=== PATIENT | female | born 1980 | race African-American/Black ===

== ENCOUNTER 2018-01-29 13:42 | Emergency (ER) | payer SELFPAY ==
[2018-01-29 14:11] LABS: #Basophils 0.1 thou/uL (0.0-0.2); #Eosinphils 0.2 thou/uL (0.0-0.7); #Lymphocytes 2.3 thou/uL (1.20-3.40); #Monocytes 0.5 thou/uL (0.11-0.59); #Neutrophils 4.7 thou/uL (1.40-6.50); %Basophils 0.9 % (0.0-1.0); %Eosinophils 2.9 % (0.0-10.0); %Lymphocytes 29.7 % (21.0-51.0); %Monocytes 6.1 % (0.0-10.0); %Neutrophils 60.3 % (42.0-75.0); Hemoglobin 12.5 g/dL (12.0-16.0); Mean Corpuscular HGB CONC 32.2 g/dL (32.0-36.0); Mean Corpuscular Hemoglobin 25.8 pg (27.0-31.0); Mean Platelet Volume 9.3 fL (7.4-10.4); Platelet Count 260 thou/uL (130-400); RBC Distribution Width 17.3 % (11.5-14.5); Red Blood Cell (RBC) Count 4.84 mill/uL (4.20-5.40); White Blood Cell (WBC) Count 7.8 thou/uL (4.8-10.8)
[2018-01-29 14:36] LABS: ALT (SGPT) 17 U/L (8-55); AST (SGOT) 19 U/L (5-34); Albumin 4.4 g/dL (3.5-5.0); Alkaline Phosphatase 101 U/L (40-150); Anion Gap 14 mmol/L (10-20); BUN (Urea Nitrogen) 14 mg/dL (7.0-18.7); Bilirubin, Total 0.6 mg/dL (0.2-1.2); Calc. Creatinine Clearance 0 mL/min (70-130); Calcium 9.4 mg/dL (7.8-10.44); Carbon Dioxide 26 mmol/L (22-29); Chloride 104 mmol/L (98-107); Estimated GFR-MDRD 67; Globulin 4.1 g/dL (2.4-3.5); Glucose 93 mg/dL (70-105); Protein, Total 8.5 g/dL (6.0-8.3); Sodium 140 mmol/L (136-145)
[2018-01-29 15:06] LABS: CKMB 1.8 ng/mL (0-6.6); Troponin I 0.024 ng/mL (< 0.028)
[2018-01-29 15:45] LABS: Bilirubin Small (Negative); Blood, Urine Negative (Negative); Clarity CLEAR (Clear); Glucose, Urine (Dipstick) Negative (Negative); Leukocyte Trace (Negative); Nitrite Negative (Negative); Protein, Urine (Dipstick) Trace mg/dL (Neg-Trace); Specific Gravity, Urine 1.027 (1.002-1.036)
[2018-01-29 15:46] LABS: Bacteria/HPF None Seen HPF (None Seen); Hyaline Casts/LPF 7-10 HYALINE CAST LPF (0-3 Hyaline); Pathc Cast-AUWi Flag 2.03 (0-2.49); Squamous Epithelial 0-3 HPF (0-3); WBC/HPF 0-3 HPF (0-3)
[2018-01-29 16:00] LABS: Pregnancy Test - Urine (BHCG) Negative (Negative); Pregu Control Background? CLEAR/WHITE (CLR/WHITE); Pregu Control Bar Appear? YES (CONTROL BAR); Specific Gravity 1.027 (1.002-1.036)
== END 2018-01-29 16:19 | disposition home or self-care (01) ==
LOC: ERS 13:42
DX: R53.1 Weakness (principal); R42 Dizziness and giddiness; E03.9 Hypothyroidism, unspecified; D50.9 Iron deficiency anemia, unspecified; F17.210 Nicotine dependence, cigarettes, uncomplicated; Z79.899 Other long term (current) drug therapy
CPT/HCPCS: 36415; 80053; 81003; 81015; 81025; 82553; 83880; 84484; 85025; 93005

== ENCOUNTER 2021-07-18 09:55 | Inpatient (IN) | payer OTHER, SELFPAY ==
[2021-07-18] MEDS ORDERED: methylPREDNISolone Sod Succ/PF 125 MG/2 ML VIAL ONE (10:30)
[2021-07-18 10:51] LABS: #Basophils 0.2 thou/uL (0.0-0.2); #Eosinphils 0.2 thou/uL (0.0-0.7); #Lymphocytes 4.2 thou/uL (1.20-3.40); #Neutrophils 9.5 thou/uL (1.40-6.50); %Basophils 1.2 % (0.0-1.0); %Eosinophils 1.1 % (0.0-10.0); %Lymphocytes 27.9 % (21.0-51.0); %Monocytes 6.8 % (0.0-10.0); Hemoglobin 12.4 g/dL (12.0-16.0); Mean Corpuscular HGB CONC 30.2 g/dL (32.0-36.0); Mean Corpuscular Hemoglobin 28.6 pg (27.0-31.0); Mean Corpuscular Volume 94.9 fL (78.0-98.0); Mean Platelet Volume 10.2 fL (7.4-10.4); Platelet Count 268 thou/uL (130-400); RBC Distribution Width 18.2 % (11.5-14.5); Red Blood Cell (RBC) Count 4.34 mill/uL (4.20-5.40); White Blood Cell (WBC) Count 15.1 thou/uL (4.8-10.8)
[2021-07-18] MEDS ORDERED: Piperacillin/Tazobactam 3.375 GM VIAL ONE (11:07)
[2021-07-18 11:20] LABS: ALT (SGPT) 39 U/L (8-55); AST (SGOT) 20 U/L (5-34); Albumin 3.9 g/dL (3.5-5.0); Alkaline Phosphatase 119 U/L (40-110); Anion Gap 11 mmol/L (10-20); BUN (Urea Nitrogen) 13 mg/dL (7.0-18.7); Bilirubin, Total 0.3 mg/dL (0.2-1.2); Calc. Creatinine Clearance 0 mL/min (70-130); Calcium 9.6 mg/dL (7.8-10.44); Carbon Dioxide 33 mmol/L (22-29); Chloride 105 mmol/L (98-107); Globulin 4.1 g/dL (2.4-3.5); Glucose 93 mg/dL (70-105); Potassium 3.7 mmol/L (3.5-5.1); Sodium 145 mmol/L (136-145)
[2021-07-18] MEDS ORDERED: Ondansetron ODT 4 MG TAB PO PRN (13:54)
[2021-07-18] MEDS ORDERED: Acetaminophen 325 MG TAB PO PRN (13:54)
[2021-07-18] MEDS ORDERED: Escitalopram Oxalate 20 mg Tablet PO SCH (14:15)
[2021-07-18] MEDS ORDERED: hydrALAZINE 20 MG/ML VIAL SLOW IVP SCH (14:45)
[2021-07-18] MEDS ORDERED: hydrALAZINE 20 MG/ML VIAL ONE (15:02)
[2021-07-18] MEDS ORDERED: Lorazepam 2 MG/ML VIAL ONE ×2 (15:19→21:25)
[2021-07-18 15:33] LABS: SARS-CoV-2 NAA Rapid Test Not Detected (NotDetected)
[2021-07-18 15:46] LABS: Actual Bicarbonate (HCO3a) 29.4 mEq/L (22-28); Analyzer IN Cardio ER; Base Excess (BEa) 2.8 mEq/L (-2.0 to +3.0); CO2 Tension 53.8 mmHg (35.0-45.0); Calcium, Ionized (arterial) 1.18 mmol/L (1.12-1.30); Carboxyhemoglobin (COHb) 0.3 gm% (0.0-3.0); Hemoglobin (Hb) 13.2 g/dL (12.0-16.0); O2 Tension (PaO2), arterial 145.8 mmHg (80.0-100.0); Potassium - ABG Lab 4.16 mmol/L (3.70-5.30); pH, Arterial 7.36 (7.35-7.45)
[2021-07-18 15:47] LABS: Puncture Site RRA
[2021-07-18] MEDS ORDERED: Electrolyte Replacement Protocol 1 EACH IVPB SCH (18:32)
[2021-07-18] MEDS ORDERED: Lidocaine 2% Jelly 5 ML TUBE ONE (19:07)
[2021-07-18] MEDS ORDERED: Bupivacaine PF 0.5% 30 ML VIAL ONE (19:15)
[2021-07-18] MEDS ORDERED: EPINEPHrine 1 MG/ML AMP ONE (19:15)
[2021-07-18] MEDS ORDERED: Succinylcholine 200 MG/10 ml SYRINGE FS ONE (20:05)
[2021-07-18] MEDS ORDERED: Phenylephrine 10 MG/ML VIAL ONE (20:05)
[2021-07-18] MEDS ORDERED: PROPOFOL 200 MG/20 ML VIAL ONE (20:05)
[2021-07-18] MEDS ORDERED: Dexamethasone 20 MG/5 ML VIAL ONE (20:05)
[2021-07-18] MEDS ORDERED: Rocuronium Bromide 10 MG/ML (10ML VIAL) ONE (20:05)
[2021-07-18] MEDS ORDERED: PROPOFOL 20 ML ONE (20:19)
[2021-07-18] MEDS ORDERED: Propofol 1,000 MG/100 ML VIAL IV ONE ×2 (20:19→20:51)
[2021-07-18] MEDS ORDERED: Midazolam HCl 5 mg/5 ml Vial ONE (20:20)
[2021-07-18 21:18] LABS: Actual Bicarbonate (HCO3a) 33.6 mEq/L (22-28); Base Excess (BEa) 3.6 mEq/L (-2.0 to +3.0); Carboxyhemoglobin (COHb) 0.2 gm% (0.0-3.0); Hemoglobin (Hb) 12.7 g/dL (12.0-16.0); O2 Tension (PaO2), arterial 168.2 mmHg (80.0-100.0); Potassium - ABG Lab 4.87 mmol/L (3.70-5.30)
[2021-07-18 21:21] LABS: CO2 Tension 82.5 mmHg (35.0-45.0); pH, Arterial 7.23 (7.35-7.45)
[2021-07-18 21:22] LABS: ALV-art Gradient 441.675 mmHg (0-20); Puncture Site RRA
[2021-07-18] MEDS ORDERED: Propofol BOLUS 1,000 MG/100 ML VIAL IV PRN (21:30)
[2021-07-18] MEDS ORDERED: Ventilator Sedation Protocol 1 EACH FS SCH (21:30)
[2021-07-18] MEDS ORDERED: Morphine 2 MG/ML VIAL SLOW IVP PRN (21:30)
[2021-07-18] MEDS ORDERED: DISCONTINUE PREVIOUS NARCOTIC PAIN MEDICATIONS AND BENZODIAZEPINES FS SCH (21:30)
[2021-07-18] MEDS ORDERED: Fentanyl BOLUS 250 ML IVPB PRN (21:30)
[2021-07-18] MEDS: Fentanyl CADD 100 ML IV SCH (21:45)
[2021-07-18] MEDS: Lorazepam 2 MG/ML VIAL SLOW IVP PRN (21:45)
[2021-07-18 23:15] LABS: Actual Bicarbonate (HCO3a) 29.2 mEq/L (22-28); Base Excess (BEa) 1.3 mEq/L (-2.0 to +3.0); Calcium, Ionized (arterial) 1.16 mmol/L (1.12-1.30); Carboxyhemoglobin (COHb) 0.3 gm% (0.0-3.0); Hemoglobin (Hb) 11.5 g/dL (12.0-16.0); O2 Tension (PaO2), arterial 106.2 mmHg (80.0-100.0); pH, Arterial 7.28 (7.35-7.45)
[2021-07-18 23:25] LABS: ALV-art Gradient 528.175 mmHg (0-20); CO2 Tension 62.9 mmHg (35.0-45.0); Puncture Site RRA
[2021-07-19] MEDS: Famotidine 20 MG TAB PO SCH ×2 (01:42→08:41)
[2021-07-19] MEDS: Propofol 1,000 MG/100 ML VIAL IV PRN ×3 (02:45→18:30)
[2021-07-19] MEDS: Lorazepam 2 MG/ML VIAL SLOW IVP PRN ×8 (02:46→23:24)
[2021-07-19] MEDS: Sodium Chloride 0.9% 1,000 ML IV SCH ×2 (02:48→06:48)
[2021-07-19 04:05] LABS: #Eosinphils 0.1 thou/uL (0.0-0.7); #Lymphocytes 0.7 thou/uL (1.20-3.40); #Monocytes 0.1 thou/uL (0.11-0.59); #Neutrophils 11.1 thou/uL (1.40-6.50); %Eosinophils 0.4 % (0.0-10.0); %Lymphocytes 6.1 % (21.0-51.0); %Monocytes 1.2 % (0.0-10.0); %Neutrophils 92.3 % (42.0-75.0); Hemoglobin 10.3 g/dL (12.0-16.0); Mean Corpuscular HGB CONC 29.6 g/dL (32.0-36.0); Mean Corpuscular Hemoglobin 28.7 pg (27.0-31.0); Mean Corpuscular Volume 96.8 fL (78.0-98.0); Platelet Count 229 thou/uL (130-400); RBC Distribution Width 18.1 % (11.5-14.5); Red Blood Cell (RBC) Count 3.58 mill/uL (4.20-5.40); White Blood Cell (WBC) Count 12.1 thou/uL (4.8-10.8)
[2021-07-19 04:20] LABS: ALT (SGPT) 56 U/L (8-55); AST (SGOT) 46 U/L (5-34); Alkaline Phosphatase 85 U/L (40-110); Anion Gap 11 mmol/L (10-20); BUN (Urea Nitrogen) 18 mg/dL (7.0-18.7); Bilirubin, Total 0.3 mg/dL (0.2-1.2); Calc. Creatinine Clearance 0 mL/min (70-130); Calcium 8.3 mg/dL (7.8-10.44); Carbon Dioxide 30 mmol/L (22-29); Chloride 107 mmol/L (98-107); Globulin 3.3 g/dL (2.4-3.5); Glucose 142 mg/dL (70-105); Potassium 5.5 mmol/L (3.5-5.1); Protein, Total 6.3 g/dL (6.0-8.3); Sodium 142 mmol/L (136-145)
[2021-07-19] MEDS: Fentanyl CADD 100 ML IV SCH ×2 (05:19→15:17)
[2021-07-19] MEDS: Lactated Ringer's 1,000 ML IV SCH ×4 (08:02→20:57)
[2021-07-19] MEDS: Enoxaparin Sodium 40 MG/0.4 ML SYRINGE SC SCH (08:40)
[2021-07-19 08:58] VITALS: BMI 37.1
[2021-07-19 09:38] LABS: Actual Bicarbonate (HCO3a) 22.6 mEq/L (22-28); Analyzer IN Cardio ER; Base Excess (BEa) -0.6 mEq/L (-2.0 to +3.0); CO2 Tension 32.4 mmHg (35.0-45.0); Calcium, Ionized (arterial) 1.14 mmol/L (1.12-1.30); Carboxyhemoglobin (COHb) 0.3 gm% (0.0-3.0); Hemoglobin (Hb) 11.1 g/dL (12.0-16.0); Potassium - ABG Lab 4.68 mmol/L (3.70-5.30); pH, Arterial 7.46 (7.35-7.45)
[2021-07-19 09:39] LABS: O2 Tension (PaO2), arterial 57.8 mmHg (80.0-100.0)
[2021-07-19 09:40] LABS: Puncture Site RRA
[2021-07-19] MEDS ORDERED: Famotidine 20 MG TAB PER TUBE SCH (11:27)
[2021-07-19 15:36] VITALS: BP 119/78
[2021-07-19] MEDS ORDERED: FLU VACC QS2021-22(6MOS UP)/PF 60 MCG/0.5 ML SYRINGE IM ONE (18:00)
[2021-07-19] MEDS: Famotidine/PF 20 mg/2ml Vial SLOW IVP SCH (20:57)
[2021-07-19] MEDS: Cefepime 2 GM in Sodium Chloride 0.9% 100 ML IVPB SCH (22:33)
[2021-07-20] MEDS: Fentanyl CADD 100 ML IV SCH ×2 (01:04→11:02)
[2021-07-20 04:15] LABS: #Lymphocytes 2.8 thou/uL (1.20-3.40); #Neutrophils 8.2 thou/uL (1.40-6.50); %Basophils 0.3 % (0.0-1.0); %Eosinophils 0.3 % (0.0-10.0); %Monocytes 8.5 % (0.0-10.0); %Neutrophils 67.9 % (42.0-75.0); Hemoglobin 9.8 g/dL (12.0-16.0); Mean Corpuscular HGB CONC 31.4 g/dL (32.0-36.0); Mean Corpuscular Hemoglobin 29.1 pg (27.0-31.0); Mean Corpuscular Volume 92.8 fL (78.0-98.0); Mean Platelet Volume 10.5 fL (7.4-10.4); Platelet Count 193 thou/uL (130-400); RBC Distribution Width 18.1 % (11.5-14.5); Red Blood Cell (RBC) Count 3.37 mill/uL (4.20-5.40); White Blood Cell (WBC) Count 12.1 thou/uL (4.8-10.8)
[2021-07-20] MEDS: Propofol 1,000 MG/100 ML VIAL IV PRN ×3 (04:32→15:54)
[2021-07-20] MEDS: Lactated Ringer's 1,000 ML IV SCH ×2 (04:39→10:29)
[2021-07-20 05:02] LABS: ALT (SGPT) 42 U/L (8-55); AST (SGOT) 21 U/L (5-34); Alkaline Phosphatase 73 U/L (40-110); Anion Gap 11 mmol/L (10-20); BUN (Urea Nitrogen) 30 mg/dL (7.0-18.7); Bilirubin, Total 0.3 mg/dL (0.2-1.2); Calc. Creatinine Clearance 113 mL/min (70-130); Calcium 8.9 mg/dL (7.8-10.44); Carbon Dioxide 26 mmol/L (22-29); Chloride 104 mmol/L (98-107); Glucose 99 mg/dL (70-105); Potassium 3.7 mmol/L (3.5-5.1); Sodium 137 mmol/L (136-145)
[2021-07-20] MEDS: Lorazepam 2 MG/ML VIAL SLOW IVP PRN ×5 (05:12→15:54)
[2021-07-20 08:35] VITALS: TEMP 98.5
[2021-07-20] MEDS: Enoxaparin Sodium 40 MG/0.4 ML SYRINGE SC SCH (08:37)
[2021-07-20] MEDS: Famotidine/PF 20 mg/2ml Vial SLOW IVP SCH (08:37)
[2021-07-20] MEDS: Cefepime 2 GM in Sodium Chloride 0.9% 100 ML IVPB SCH (08:42)
[2021-07-20] MEDS ORDERED: EPINEPHrine 1 MG/10 ML Abboject SYRINGE ONE (13:57)
[2021-07-20] MEDS ORDERED: Sodium Bicarb 50 MEQ/50 ML Abboject 8.4% SYRINGE ONE (14:00)
== END 2021-07-20 16:25 | disposition short-term general hospital (02) | DRG 208 ==
LOC: ERS 09:55 → ERHOLD 13:34 → CCU 13:45
PROVIDERS: ADMIT Family Medicine; ATTEND Family Medicine
PROC: 5A1945Z Respiratory Ventilation, 24-96 Consecutive Hours (ICD-10-PCS; principal; 2021-07-18)
PROC: 0D9670Z Drainage of Stomach with Drainage Device, Via Natural or Artificial Opening (ICD-10-PCS; 2021-07-18)
PROC: 0BH18EZ Insertion of Endotracheal Airway into Trachea, Via Natural or Artificial Opening Endoscopic (ICD-10-PCS; 2021-07-18)
PROC: 0BJ08ZZ Inspection of Tracheobronchial Tree, Via Natural or Artificial Opening Endoscopic (ICD-10-PCS; 2021-07-18)
PROC: 5A1935Z Respiratory Ventilation, Less than 24 Consecutive Hours (ICD-10-PCS; 2021-07-18)
DX: J95.03 Malfunction of tracheostomy stoma (principal); J96.01 Acute respiratory failure with hypoxia; T17.490A Other foreign object in trachea causing asphyxiation, initial encounter; Z20.822 Contact with and (suspected) exposure to COVID-19; E03.9 Hypothyroidism, unspecified; D50.9 Iron deficiency anemia, unspecified; F17.210 Nicotine dependence, cigarettes, uncomplicated; I10 Essential (primary) hypertension; F41.9 Anxiety disorder, unspecified; U09.9 Post COVID-19 condition, unspecified; F41.1 Generalized anxiety disorder; J45.909 Unspecified asthma, uncomplicated; F43.10 Post-traumatic stress disorder, unspecified; T17.990A Other foreign object in respiratory tract, part unspecified in causing asphyxiation, initial encounter; Z90.49 Acquired absence of other specified parts of digestive tract; Z79.890 Hormone replacement therapy; Z79.899 Other long term (current) drug therapy; Z78.1 Physical restraint status
CPT/HCPCS: 36415; 36600; 71045; 71046; 80053; 82805; 84145; 84484; 85025; 93005; 94002; 94003; 94660; 94760; J0171; J0360; J0692; J1100; J1650; J2060; J2250; J2370; J2543; J2704; J2930; J3010; J3490; J7050; J7120; J7620; S0020; S0028; U0002

== ENCOUNTER 2021-10-09 17:30 | Outpatient (CLI) | payer OTHER | END 2021-10-09 17:31 | disposition home or self-care (01) | LOC: SLEEPLAB 17:30 | PROVIDERS: ATTEND Internal Medicine Pulmonary Disease | DX: G47.33 Obstructive sleep apnea (adult) (pediatric) (principal); R53.83 Other fatigue; G47.00 Insomnia, unspecified | CPT/HCPCS: 95806 ==

== ENCOUNTER 2021-10-12 08:03 | Emergency (ER) | payer OTHER ==
[2021-10-12] MEDS ORDERED: Dexamethasone 10 MG/ML VIAL ONE (08:27)
[2021-10-12] MEDS ORDERED: Racepinephrine 2.25% 0.5 ML NEB ONE (08:43)
[2021-10-12 08:52] LABS: #Basophils 0.1 thou/uL (0.0-0.2); #Eosinphils 0.4 thou/uL (0.0-0.7); #Lymphocytes 3.1 thou/uL (1.20-3.40); #Monocytes 0.5 thou/uL (0.11-0.59); #Neutrophils 4.9 thou/uL (1.40-6.50); %Eosinophils 4.7 % (0.0-10.0); %Lymphocytes 34.1 % (21.0-51.0); %Neutrophils 54.3 % (42.0-75.0); Hemoglobin 12.4 g/dL (12.0-16.0); Mean Corpuscular HGB CONC 30.1 g/dL (32.0-36.0); Mean Corpuscular Hemoglobin 26.3 pg (27.0-31.0); Mean Corpuscular Volume 87.5 fL (78.0-98.0); Mean Platelet Volume 8.7 fL (7.4-10.4); Platelet Count 355 thou/uL (130-400); RBC Distribution Width 15.2 % (11.5-14.5); Red Blood Cell (RBC) Count 4.71 mill/uL (4.20-5.40)
[2021-10-12 09:28] LABS: SARS-CoV-2 NAA Rapid Test Not Detected (NotDetected)
[2021-10-12 10:37] LABS: ALT (SGPT) 16 U/L (8-55); AST (SGOT) 17 U/L (5-34); Albumin 3.9 g/dL (3.5-5.0); Alkaline Phosphatase 83 U/L (40-110); Anion Gap 11 mmol/L (10-20); BUN (Urea Nitrogen) 12 mg/dL (7.0-18.7); Bilirubin, Total 0.2 mg/dL (0.2-1.2); Calc. Creatinine Clearance 0 mL/min (70-130); Calcium 9.1 mg/dL (7.8-10.44); Carbon Dioxide 27 mmol/L (22-29); Chloride 105 mmol/L (98-107); Globulin 3.7 g/dL (2.4-3.5); Glucose 127 mg/dL (70-105); Potassium 3.8 mmol/L (3.5-5.1); Protein, Total 7.6 g/dL (6.0-8.3); Sodium 139 mmol/L (136-145)
[2021-10-12 10:54] LABS: Bilirubin Negative (Negative); Blood, Urine Negative (Negative); Clarity Clear (Clear); Glucose, Urine (Dipstick) Normal (Negative); Ketone, Urine Negative (Negative); Leukocyte Negative Leu/uL (Negative); Nitrite Negative (Negative); Protein, Urine (Dipstick) Negative (Neg-Trace); Specific Gravity, Urine 1.009 (1.002-1.036); Urobilinogen Normal mg/dL (Less than 2); pH, Urine 5.5 (5.0-9.0)
[2021-10-12] MEDS ORDERED: Dexamethasone 4 mg/ml Vial SLOW IVP SCH (14:00)
== END 2021-10-12 21:57 | disposition short-term general hospital (02) ==
LOC: ERS 08:03 → ERHOLD 13:17 → UNDOADMIN 13:17 → ERS 21:57
DX: J39.8 Other specified diseases of upper respiratory tract (principal); R06.1 Stridor; E03.9 Hypothyroidism, unspecified; I10 Essential (primary) hypertension; D50.9 Iron deficiency anemia, unspecified; E11.9 Type 2 diabetes mellitus without complications; Z20.822 Contact with and (suspected) exposure to COVID-19; Z79.84 Long term (current) use of oral hypoglycemic drugs; Z79.899 Other long term (current) drug therapy
CPT/HCPCS: 36415; 70490; 71045; 71250; 80053; 81003; 85025; 94660; 96374; J1100; U0002

== ENCOUNTER 2021-11-29 19:30 | Outpatient (CLI) | payer OTHER | END 2021-11-29 19:31 | disposition home or self-care (01) | LOC: SLEEPLAB 19:30 | PROVIDERS: ATTEND Internal Medicine Pulmonary Disease | DX: G47.33 Obstructive sleep apnea (adult) (pediatric) (principal); R53.83 Other fatigue; R06.83 Snoring; G47.00 Insomnia, unspecified; G47.10 Hypersomnia, unspecified; R06.02 Shortness of breath; U09.9 Post COVID-19 condition, unspecified; I10 Essential (primary) hypertension; R09.02 Hypoxemia; J39.8 Other specified diseases of upper respiratory tract; G47.31 Primary central sleep apnea; E66.9 Obesity, unspecified; Z68.41 Body mass index [BMI] 40.0-44.9, adult | CPT/HCPCS: 95811 ==

== ENCOUNTER 2021-12-11 12:55 | Emergency (ER) | payer OTHER ==
[2021-12-11] MEDS ORDERED: methylPREDNISolone Sod Succ/PF 125 MG/2 ML VIAL ONE (13:16)
[2021-12-11] MEDS ORDERED: Racepinephrine 2.25% 0.5 ML NEB ONE (13:33)
[2021-12-11] MEDS ORDERED: Sodium Chloride For Inhalation 0.9% 3 ML NEB ONE (13:33)
[2021-12-11 14:29] LABS: #Basophils 0.1 thou/uL (0.0-0.2); #Eosinphils 0.5 thou/uL (0.0-0.7); #Lymphocytes 2.7 thou/uL (1.20-3.40); #Monocytes 0.8 thou/uL (0.11-0.59); #Neutrophils 6.9 thou/uL (1.40-6.50); %Basophils 0.6 % (0.0-1.0); %Eosinophils 4.7 % (0.0-10.0); %Lymphocytes 24.2 % (21.0-51.0); %Monocytes 7.6 % (0.0-10.0); %Neutrophils 62.9 % (42.0-75.0); Hemoglobin 12.4 g/dL (12.0-16.0); Mean Corpuscular HGB CONC 30.2 g/dL (32.0-36.0); Mean Platelet Volume 9.5 fL (7.4-10.4); Platelet Count 286 thou/uL (130-400); RBC Distribution Width 17.1 % (11.5-14.5); Red Blood Cell (RBC) Count 4.77 mill/uL (4.20-5.40)
[2021-12-11 14:53] LABS: ALT (SGPT) 21 U/L (8-55); AST (SGOT) 21 U/L (5-34); Albumin 4.2 g/dL (3.5-5.0); Alkaline Phosphatase 97 U/L (40-110); Anion Gap 9 mmol/L (10-20); BUN (Urea Nitrogen) 18 mg/dL (7.0-18.7); Bilirubin, Total 0.3 mg/dL (0.2-1.2); Calc. Creatinine Clearance 0 mL/min (70-130); Calcium 9.1 mg/dL (7.8-10.44); Carbon Dioxide 31 mmol/L (22-29); Chloride 103 mmol/L (98-107); Globulin 4.1 g/dL (2.4-3.5); Glucose 132 mg/dL (70-105); Potassium 4.4 mmol/L (3.5-5.1); Protein, Total 8.3 g/dL (6.0-8.3); Sodium 139 mmol/L (136-145)
[2021-12-11 15:26] LABS: SARS-CoV-2 NAA Rapid Test Not Detected (NotDetected)
== END 2021-12-11 16:43 | disposition short-term general hospital (02) ==
LOC: ERS 12:55
DX: J39.8 Other specified diseases of upper respiratory tract (principal); I10 Essential (primary) hypertension; E03.9 Hypothyroidism, unspecified; D50.9 Iron deficiency anemia, unspecified; E11.9 Type 2 diabetes mellitus without complications; Z79.899 Other long term (current) drug therapy; Z79.84 Long term (current) use of oral hypoglycemic drugs; Z79.51 Long term (current) use of inhaled steroids; Z20.822 Contact with and (suspected) exposure to COVID-19
CPT/HCPCS: 36415; 70490; 71045; 80053; 83880; 84484; 85025; 93005; 94640; 96374; J2930; J7620

== ENCOUNTER 2022-02-03 03:17 | Emergency (ER) | payer OTHER ==
[2022-02-03] MEDS ORDERED: Ketorolac Tromethamine 30 MG/ML VIAL ONE (03:36)
== END 2022-02-03 04:49 | disposition home or self-care (01) ==
LOC: ERS 03:17
DX: Z43.0 Encounter for attention to tracheostomy (principal); R51.9 Headache, unspecified; E03.9 Hypothyroidism, unspecified; D64.9 Anemia, unspecified; I10 Essential (primary) hypertension; D50.9 Iron deficiency anemia, unspecified; E11.9 Type 2 diabetes mellitus without complications; Z79.899 Other long term (current) drug therapy; Z79.84 Long term (current) use of oral hypoglycemic drugs; Z79.51 Long term (current) use of inhaled steroids
CPT/HCPCS: 71045; 96372; J1885

== ENCOUNTER 2022-02-16 12:53 | Emergency (ER) | payer OTHER | END 2022-02-16 14:17 | disposition home or self-care (01) | LOC: ERS 12:53 | DX: J95.03 Malfunction of tracheostomy stoma (principal); E03.9 Hypothyroidism, unspecified; I10 Essential (primary) hypertension; E11.9 Type 2 diabetes mellitus without complications; Z79.899 Other long term (current) drug therapy | CPT/HCPCS: 99284 ==

== ENCOUNTER 2023-03-28 10:26 | Emergency (ER) | payer OTHER ==
[2023-03-28 11:53] LABS: SARS-CoV-2 NAA Rapid Test Not Detected (NotDetected)
== END 2023-03-28 12:17 | disposition home or self-care (01) ==
LOC: ERS 10:26
DX: J06.9 Acute upper respiratory infection, unspecified (principal); Z20.822 Contact with and (suspected) exposure to COVID-19; E03.9 Hypothyroidism, unspecified; I10 Essential (primary) hypertension; E11.9 Type 2 diabetes mellitus without complications
CPT/HCPCS: 99283

== ENCOUNTER 2023-06-28 06:20 | Observation (INO) | payer OTHER, SELFPAY ==
[2023-06-28] MEDS ORDERED: Magnesium 2 GM/50 ML BAG (IN WATER) ONE (06:33)
[2023-06-28] MEDS ORDERED: Dexamethasone 10 MG/ML VIAL ONE (06:33)
[2023-06-28] MEDS ORDERED: Albuterol 2.5 MG/0.5 ML NEB ONE (06:44)
[2023-06-28 07:27] LABS: #Basophils 0.1 thou/uL (0.0-0.2); #Eosinphils 0.4 thou/uL (0.0-0.7); #Monocytes 0.5 thou/uL (0.11-0.59); #Neutrophils 6.3 thou/uL (1.40-6.50); %Basophils 0.7 % (0.0-1.0); %Lymphocytes 24.8 % (21.0-51.0); %Monocytes 4.9 % (0.0-10.0); %Neutrophils 65.1 % (42.0-75.0); Hematocrit 22.3 % (36.0-47.0); Mean Corpuscular HGB CONC 26.5 g/dL (32.0-36.0); Mean Corpuscular Hemoglobin 17.1 pg (27.0-31.0); Mean Corpuscular Volume 64.6 fl (78.0-98.0); Mean Platelet Volume 10.3 fL (7.4-10.4); Platelet Count 360 10x3/uL (130-400); RBC Distribution Width 22.3 % (11.5-14.5); Red Blood Cell (RBC) Count 3.45 mill/uL (4.20-5.40); White Blood Cell (WBC) Count 9.6 10x3/uL (4.8-10.8)
[2023-06-28 07:32] LABS: Hemoglobin 5.9 g/dL (12.0-16.0)
[2023-06-28 07:49] LABS: ALT (SGPT) 9 U/L (8-55); AST (SGOT) 18 U/L (5-34); Alkaline Phosphatase 75 U/L (40-110); Anion Gap 13 mmol/L (10-20); BUN (Urea Nitrogen) 11 mg/dL (7.0-18.7); Bilirubin, Total 0.3 mg/dL (0.2-1.2); Calc. Creatinine Clearance 0 mL/min (70-130); Calcium 8.5 mg/dL (7.8-10.44); Carbon Dioxide 22 mmol/L (22-29); Chloride 108 mmol/L (98-107); Estimated GFR 56; Globulin 3.9 g/dL (2.4-3.5); Glucose 112 mg/dL (70-105); Lipase 47 U/L (8-78); Magnesium 1.8 mg/dL (1.6-2.6); Potassium 3.4 mmol/L (3.5-5.1); Protein, Total 7.9 g/dL (6.0-8.3); Sodium 140 mmol/L (136-145)
[2023-06-28 07:55] LABS: CellaVision Operator ID LAB.GE; Hypochromia MARKED = >30 cells HPF (0-5); Large Platelets 17.2 % (0-5); Microcytosis MARKED = >30 cells HPF (0-5); Ovalocytes SLIGHT = 2-5 cells HPF (0-1); Platelet Adequacy Comment Platelets Normal; Polychromasia MODERATE = 3-4 cells HPF (0-2); Target Cells SLIGHT = 2-5 cells HPF (0-1)
[2023-06-28 09:48] LABS: Bacteria/HPF None Seen HPF (None Seen); Bilirubin Negative (Negative); Blood, Urine Negative (Negative); CAUTI Indications for Culture Dysuria,urgency,freq; Clarity Clear (Clear); Glucose, Urine (Dipstick) Normal (Negative); Ketone, Urine Negative (Negative); Leukocyte Negative Leu/uL (Negative); Nitrite Negative (Negative); Protein, Urine (Dipstick) Negative (Neg-Trace); RBC/HPF 0-3 HPF (0-3); Specific Gravity, Urine 1.006 (1.002-1.036); Squamous Epithelial 0-3 HPF (0-3); Urobilinogen Normal mg/dL (Less than 2); WBC/HPF 0-3 HPF (0-3)
[2023-06-28 09:52] LABS: Urine Culture Reflex No No
[2023-06-28 10:00] LABS: SARS-CoV-2 NAA Rapid Test Not Detected (NotDetected)
[2023-06-28] MEDS ORDERED: Acetaminophen 325 MG TAB PO PRN (11:01)
[2023-06-28] MEDS ORDERED: HumaLOG 300 UNITS/3 ML VIAL SC PRN ×2 (11:06)
[2023-06-28] MEDS ORDERED: Dextrose 5% in Water 1,000 ML IV PRN (11:06)
[2023-06-28] MEDS ORDERED: Glucagon 1 MG/ML KIT IM PRN (11:06)
[2023-06-28] MEDS ORDERED: Dextrose 50% Abboject 50 ML SYRINGE SLOW IVP PRN (11:06)
[2023-06-28] MEDS ORDERED: Albuterol 200 PUFF (6.7GM INHALER) INH PRN (11:45)
[2023-06-28] MEDS ORDERED: hydrOXYzine 25 MG TAB PO PRN (11:45)
[2023-06-28] MEDS ORDERED: NIFEdipine XL 60 MG ER.TAB PO SCH (12:00)
[2023-06-28] MEDS ORDERED: Levothyroxine 150 MCG TAB PO SCH (12:00)
[2023-06-28 12:34] LABS: Pregnancy Test - Urine (BHCG) Negative (Negative); Pregu Control Background? CLEAR/WHITE (CLR/WHITE); Pregu Control Bar Appear? YES (CONTROL BAR); Specific Gravity 1.006 (1.002-1.036)
[2023-06-28 12:37] VITALS: BMI 36.6
[2023-06-28] MEDS ORDERED: guaiFENesin ER 600 MG TAB PO SCH ×2 (12:37→12:45)
[2023-06-28 12:52] LABS: Ferritin 6.35 ng/mL (10-291)
[2023-06-28 13:05] LABS: Iron 18 ug/dL (50-170); Iron Binding Capacity, Total 480 mcg/dL (265-497); Transferrin, Serum 384 mg/dL (180-382)
[2023-06-28] MEDS: guaiFENesin ER 600 MG TAB PO SCH ×2 (15:54→22:33)
[2023-06-28] MEDS: Mometasone 100 MCG/Formoterol 5 MCG 120 PUFF INHALER INH SCH (19:34)
[2023-06-29 05:51] LABS: #Monocytes 0.7 thou/uL (0.11-0.59); %Basophils 0.2 % (0.0-1.0); %Eosinophils 0.1 % (0.0-10.0); %Lymphocytes 14.1 % (21.0-51.0); %Monocytes 5.3 % (0.0-10.0); %Neutrophils 78.4 % (42.0-75.0); Hematocrit 27.1 % (36.0-47.0); Hemoglobin 7.7 g/dL (12.0-16.0); Mean Corpuscular HGB CONC 28.4 g/dL (32.0-36.0); Mean Corpuscular Hemoglobin 18.8 pg (27.0-31.0); Mean Corpuscular Volume 66.1 fl (78.0-98.0); Mean Platelet Volume 10.2 fL (7.4-10.4); Platelet Count 377 10x3/uL (130-400); RBC Distribution Width 24.2 % (11.5-14.5); White Blood Cell (WBC) Count 12.7 10x3/uL (4.8-10.8)
[2023-06-29] MEDS ORDERED: Levothyroxine 150 MCG TAB PO SCH (06:00)
[2023-06-29] MEDS: Mometasone 100 MCG/Formoterol 5 MCG 120 PUFF INHALER INH SCH (07:22)
[2023-06-29] MEDS ORDERED: Ferrous Sulfate 325 MG TAB PO SCH (08:00)
[2023-06-29] MEDS: guaiFENesin ER 600 MG TAB PO SCH (08:33)
[2023-06-29 08:37] VITALS: BP 109/68
[2023-06-29] MEDS ORDERED: LEVOTHYROXINE SODIUM 25 MCG/ML PO SCH (09:00)
[2023-06-29] MEDS ORDERED: NIFEdipine XL 30 MG ER.TAB PO SCH (09:00)
[2023-06-29] MEDS ORDERED: Bupropion 150 MG SR.TAB PO SCH (09:00)
[2023-06-29] MEDS ORDERED: Non-Formulary Item 1 EACH (Ferrous Sulfate [Iron] 325 MG Tablet) PO SCH (09:00)
[2023-06-29] MEDS ORDERED: BuPROPion 100 MG SR.TAB PO SCH (09:00)
[2023-06-29] MEDS ORDERED: NIFEdipine XL 60 MG ER.TAB PO SCH (09:00)
[2023-06-29] MEDS ORDERED: Escitalopram Oxalate 20 mg Tablet PO SCH (09:00)
[2023-06-29] MEDS ORDERED: Iron Sucrose Complex 200 MG in Sodium Chloride 0.9% 100 ML IVPB SCH (09:30)
[2023-06-29 09:58] VITALS: TEMP 98.1
[2023-06-29] MEDS ORDERED: Iron, Sodium Ferric Gluconate 250 MG in Sodium Chloride 0.9% 250 ML 250 ML IVPB SCH (10:00)
== END 2023-06-29 15:26 | disposition home or self-care (01) ==
LOC: ERS 06:20 → ERHOLD 10:34 → T4-A 15:25
PROVIDERS: ADMIT Family Medicine; ATTEND Family Medicine
DX: N92.0 Excessive and frequent menstruation with regular cycle (principal); D50.0 Iron deficiency anemia secondary to blood loss (chronic); E11.9 Type 2 diabetes mellitus without complications; F32.A Depression, unspecified; F41.9 Anxiety disorder, unspecified; J45.909 Unspecified asthma, uncomplicated; E03.9 Hypothyroidism, unspecified; I10 Essential (primary) hypertension; Z79.890 Hormone replacement therapy; Z79.84 Long term (current) use of oral hypoglycemic drugs; Z79.899 Other long term (current) drug therapy; Z88.1 Allergy status to other antibiotic agents; Z88.8 Allergy status to other drugs, medicaments and biological substances
CPT/HCPCS: 36415; 36416; 36430; 71045; 80053; 81001; 81025; 82728; 83540; 83550; 83605; 83690; 83735; 83880; 84443; 84466; 85025; 86850; 86900; 86901; 87040; 93005; 94640; 96361; 96365; 96375; 97139; G0378; J1100; J2916; J3475; J7050; J7611; P9016

== ENCOUNTER 2023-08-18 09:46 | Emergency (ER) | payer OTHER, SELFPAY ==
[2023-08-18 12:18] LABS: #Basophils 0.1 thou/uL (0.0-0.2); #Eosinphils 0.2 thou/uL (0.0-0.7); #Monocytes 0.6 thou/uL (0.11-0.59); #Neutrophils 5.5 thou/uL (1.40-6.50); %Eosinophils 2.8 % (0.0-10.0); %Lymphocytes 19.6 % (21.0-51.0); %Monocytes 7.8 % (0.0-10.0); %Neutrophils 67.8 % (42.0-75.0); Hematocrit 24.4 % (36.0-47.0); Hemoglobin 6.8 g/dL (12.0-16.0); Mean Corpuscular HGB CONC 27.9 g/dL (32.0-36.0); Mean Corpuscular Hemoglobin 18.9 pg (27.0-31.0); Mean Platelet Volume 9.9 fL (7.4-10.4); Platelet Count 458 10x3/uL (130-400); RBC Distribution Width 27.1 % (11.5-14.5); Red Blood Cell (RBC) Count 3.59 mill/uL (4.20-5.40); White Blood Cell (WBC) Count 8.1 10x3/uL (4.8-10.8)
[2023-08-18 12:42] LABS: ALT (SGPT) 9 U/L (8-55); AST (SGOT) 12 U/L (5-34); Albumin 4.3 g/dL (3.5-5.0); Alkaline Phosphatase 90 U/L (40-110); Anion Gap 13 mmol/L (10-20); BUN (Urea Nitrogen) 13 mg/dL (7.0-18.7); Bilirubin, Total 0.4 mg/dL (0.2-1.2); Calc. Creatinine Clearance 0 mL/min (70-130); Calcium 8.7 mg/dL (7.8-10.44); Carbon Dioxide 24 mmol/L (22-29); Chloride 104 mmol/L (98-107); Estimated GFR 51; Globulin 4.2 g/dL (2.4-3.5); Glucose 105 mg/dL (70-105); Potassium 3.3 mmol/L (3.5-5.1); Protein, Total 8.5 g/dL (6.0-8.3); Sodium 138 mmol/L (136-145)
[2023-08-18 12:47] LABS: Anisocytosis MODERATE=16-30 cells HPF (0-5); CellaVision Operator ID LAB.MJL; Hypochromia MODERATE=16-30 cells HPF (0-5); Microcytosis SLIGHT = 6-15 cells HPF (0-5); Ovalocytes SLIGHT = 2-5 cells HPF (0-1); Platelet Adequacy Comment Platelets Increased; Poikilocytosis MODERATE=16-30 cells HPF (0-5); Polychromasia MODERATE = 3-4 cells HPF (0-2); Schistocytes SLIGHT = 2-5 cells HPF (0-1); Spherocytes SLIGHT = 1-5 cells HPF (None Seen); Target Cells SLIGHT = 2-5 cells HPF (0-1); Tear Drops SLIGHT = 2-5 cells HPF (0-1)
== END 2023-08-18 14:43 | disposition home or self-care (01) ==
LOC: ERS 09:46
DX: D64.9 Anemia, unspecified (principal); I10 Essential (primary) hypertension; E11.9 Type 2 diabetes mellitus without complications; E03.9 Hypothyroidism, unspecified; Z79.84 Long term (current) use of oral hypoglycemic drugs; Z79.899 Other long term (current) drug therapy
CPT/HCPCS: 36430; 80053; 85025; 86850; 86900; 86901; 99284; P9016

== ENCOUNTER 2023-08-29 11:05 | Emergency (ER) | payer MEDICARE, OTHER, SELFPAY ==
[2023-08-29] MEDS ORDERED: Morphine 4 MG/ML VIAL ONE (12:59)
[2023-08-29] MEDS ORDERED: Ondansetron ODT 4 MG TAB ONE (12:59)
[2023-08-29] MEDS ORDERED: Benzonatate 100 MG CAP ONE (13:01)
[2023-08-29 13:04] LABS: Bilirubin Negative (Negative); Blood, Urine Negative (Negative); Glucose, Urine (Dipstick) Negative (Negative); Ketone, Urine Negative (Negative); Leukocyte Negative (Negative); Nitrite Negative (Negative); Protein, Urine (Dipstick) Negative (Neg-Trace); Specific Gravity, Urine 1.015 (1.005-1.030); Urobilinogen 0.2 mg/dL (Less than 2); pH, Urine 7.5 (5.0-9.0)
[2023-08-29 13:08] LABS: Clarity Clear (Clear)
[2023-08-29 13:14] LABS: Bacteria/HPF None Seen HPF (None Seen); CAUTI Indications for Culture Dysuria,urgency,freq; Pregnancy Test - Urine (BHCG) Negative (Negative); Pregu Control Background? CLEAR/WHITE (CLR/WHITE); Pregu Control Bar Appear? YES (CONTROL BAR); RBC/HPF None Seen HPF (0-3); Specific Gravity 1.015 (1.002-1.036); Squamous Epithelial 0-3 HPF (0-3); Urine Culture Reflex No No; WBC/HPF None Seen HPF (0-3)
== END 2023-08-29 14:58 | disposition home or self-care (01) ==
LOC: ERS 11:05
DX: M54.9 Dorsalgia, unspecified (principal); B02.8 Zoster with other complications; I10 Essential (primary) hypertension; E11.9 Type 2 diabetes mellitus without complications; E03.9 Hypothyroidism, unspecified; Z79.84 Long term (current) use of oral hypoglycemic drugs; Z79.899 Other long term (current) drug therapy; Z79.51 Long term (current) use of inhaled steroids; Z79.890 Hormone replacement therapy
CPT/HCPCS: 71046; 81001; 81025; 96372; J2270; Q0162

== ENCOUNTER 2024-06-15 06:45 | Inpatient (IN) | payer MEDICARE, OTHER, SELFPAY ==
[2024-06-15] MEDS ORDERED: methylPREDNISolone Sod Succ/PF 125 MG/2 ML VIAL ONE (07:53)
[2024-06-15 08:14] LABS: #Basophils 0.06 10x3/uL (0.0-0.2); %Basophils 0.7 % (0.0-1.0); %Lymphocytes 22.9 % (21.0-51.0); %Monocytes 6.4 % (0.0-10.0); Hematocrit 20.5 % (36.0-47.0); Hemoglobin 5.2 g/dL (12.0-16.0); Mean Corpuscular HGB CONC 25.4 g/dL (32.0-36.0); Mean Corpuscular Volume 59.1 fL (78.0-98.0); Mean Platelet Volume 9.9 fL (7.4-10.4); Platelet Count 518 10x3/uL (130-400); RBC Distribution Width 21.9 % (11.5-14.5); Red Blood Cell (RBC) Count 3.47 mill/uL (4.20-5.40)
[2024-06-15 08:21] LABS: ALT (SGPT) 11 U/L (8-55); AST (SGOT) 25 U/L (5-34); Albumin 3.7 g/dL (3.5-5.0); Anion Gap 16 mmol/L (10-20); BUN (Urea Nitrogen) 13 mg/dL (7.0-18.7); Bilirubin, Total 0.3 mg/dL (0.2-1.2); Calc. Creatinine Clearance 0 mL/min (70-130); Calcium 8.6 mg/dL (7.8-10.44); Carbon Dioxide 20 mmol/L (22-29); Chloride 109 mmol/L (98-107); Estimated GFR 54; Globulin 4.5 g/dL (2.4-3.5); Glucose 103 mg/dL (70-105); Potassium 3.8 mmol/L (3.5-5.1); Protein, Total 8.2 g/dL (6.0-8.3); Sodium 141 mmol/L (136-145)
[2024-06-15 08:26] LABS: Troponin I Less than 0.010 ng/mL (< 0.028)
[2024-06-15 09:05] LABS: BHCG - Serum Negative (NEGATIVE); Pregs Control Background? CLEAR/WHITE (CLR/WHITE); Pregs Control Bar Appear? YES (CONTROL BAR)
[2024-06-15 11:20] LABS: Alkaline Phosphatase 75 U/L (40-110)
[2024-06-15] MEDS ORDERED: HYDROcodone/Acetaminophen 5/325 mg Tablet PO PRN (12:25)
[2024-06-15] MEDS ORDERED: Glucagon 1 MG/ML KIT IM PRN (12:26)
[2024-06-15] MEDS ORDERED: Dextrose 5% in Water 1,000 ML IV PRN (12:26)
[2024-06-15] MEDS ORDERED: Dextrose 50% Abboject 50 ML SYRINGE SLOW IVP PRN (12:26)
[2024-06-15] MEDS ORDERED: Insulin Lispro 100 UNIT/ML 10 ML VIAL SC PRN ×2 (12:30)
[2024-06-15 12:47] VITALS: BMI 36.6
[2024-06-15] MEDS ORDERED: Iopamidol-370 76% 500 ML MDV (1 ML CHARGE) ONE (13:13)
[2024-06-15] MEDS: Acetaminophen 325 MG TAB PO PRN (14:44)
[2024-06-15 15:55] LABS: INR-International Normal Ratio 1.1; PTT 28.3 sec (22.9-36.1); Prothrombin Time 14.6 sec (12.0-14.7)
[2024-06-15] MEDS: FLU (Fluarix Triv) TS24-25(6MOS UP)/PF 45 MCG/0.5 ML Syringe IM ONE (17:06)
[2024-06-15] MEDS: Mometasone 100 MCG/Formoterol 5 MCG 120 PUFF INHALER INH SCH (19:08)
[2024-06-15] MEDS: Albuterol 200 PUFF (6.7GM INHALER) INH PRN (19:09)
[2024-06-15] MEDS: metFORMIN 500 MG TAB PO SCH (19:53)
[2024-06-15] MEDS: guaiFENesin ER 600 MG TAB PO SCH (19:53)
[2024-06-15] MEDS: Amoxicillin/Potassium Clav 875 MG TAB PO SCH (19:53)
[2024-06-16] MEDS: Levothyroxine 150 MCG TAB PO SCH (05:33)
[2024-06-16 06:10] LABS: #Basophils 0.03 10x3/uL (0.0-0.2); #Eosinophils Less than 0.03 10x3/uL (0.0-0.7); %Basophils 0.3 % (0.0-1.0); %Monocytes 4.8 % (0.0-10.0); %Neutrophils 83.6 % (42.0-75.0); Hematocrit 20.9 % (36.0-47.0); Hemoglobin 5.8 g/dL (12.0-16.0); Mean Corpuscular HGB CONC 27.8 g/dL (32.0-36.0); Mean Corpuscular Volume 61.3 fL (78.0-98.0); Platelet Count 478 10x3/uL (130-400); RBC Distribution Width 24.3 % (11.5-14.5); Red Blood Cell (RBC) Count 3.41 mill/uL (4.20-5.40)
[2024-06-16 06:14] LABS: ALT (SGPT) 11 U/L (8-55); AST (SGOT) 15 U/L (5-34); Albumin 3.3 g/dL (3.5-5.0); Alkaline Phosphatase 65 U/L (40-110); Anion Gap 10 mmol/L (10-20); BUN (Urea Nitrogen) 14 mg/dL (7.0-18.7); Bilirubin, Total 0.4 mg/dL (0.2-1.2); Calc. Creatinine Clearance 77 mL/min (70-130); Calcium 8.4 mg/dL (7.8-10.44); Carbon Dioxide 21 mmol/L (22-29); Chloride 109 mmol/L (98-107); Estimated GFR 51; Glucose 112 mg/dL (70-105); Potassium 4.2 mmol/L (3.5-5.1); Protein, Total 7.3 g/dL (6.0-8.3); Sodium 136 mmol/L (136-145)
[2024-06-16 06:47] LABS: Anisocytosis MODERATE=16-30 cells HPF (0-5); Band 4 % (5-11); Hypochromia MODERATE=16-30 cells HPF (0-5); Large Platelets 10.9 % (0-5); Lymphocytes 9 % (21-51); Microcytosis SLIGHT = 6-15 cells HPF (0-5); Monocytes 3 % (0-10); Myelocyte 1 % (0-0); Neutrophil 83 % (42-75); Nucleated RBC (Manual Ct) 1 % (0); Platelet Adequacy Comment Platelets Increased; Polychromasia SLIGHT = 2-3 cells HPF (0-2); Tear Drops SLIGHT = 2-5 cells HPF (0-1)
[2024-06-16] MEDS ORDERED: Non-Formulary Item 1 EACH (Ferrous Sulfate [Iron] 325 MG Tablet) PO SCH (09:00)
[2024-06-16] MEDS ORDERED: Bupropion 150 MG SR.TAB PO SCH (09:00)
[2024-06-16] MEDS ORDERED: NIFEdipine XL 30 MG ER.TAB PO SCH (09:00)
[2024-06-16] MEDS ORDERED: LEVOTHYROXINE SODIUM 25 MCG/ML PO SCH (09:00)
[2024-06-16] MEDS: Escitalopram Oxalate 20 mg Tablet PO SCH (09:06)
[2024-06-16] MEDS: Ferrous Sulfate 325 MG TAB PO SCH (09:06)
[2024-06-16] MEDS: NIFEdipine XL 60 MG ER.TAB PO SCH (09:07)
[2024-06-16] MEDS: HYDROcodone/Acetaminophen 5/325 mg Tablet PO PRN (09:08)
[2024-06-16] MEDS: BuPROPion 100 MG SR.TAB PO SCH (09:09)
[2024-06-16] MEDS ORDERED: Sodium Chloride 3% (15 ML) NEB NEB PRN (11:51)
[2024-06-16] MEDS: Benzocaine/Menthol 1 LOZ LOZ PO PRN (12:17)
[2024-06-16] MEDS: Ondansetron ODT 4 MG TAB PO PRN (12:17)
[2024-06-16] MEDS ORDERED: Acetaminophen 325 MG Suppository PR PRN (12:30)
[2024-06-16] MEDS: Acetaminophen 325 MG TAB PO PRN (13:10)
[2024-06-16 14:28] VITALS: BMI 36.6
[2024-06-16 16:15] LABS: Hematocrit 25.3 % (36.0-47.0); Hemoglobin 7.1 g/dL (12.0-16.0)
[2024-06-16] MEDS: hydrOXYzine 25 MG TAB PO PRN (20:11)
[2024-06-17 05:20] LABS: ALT (SGPT) 19 U/L (8-55); AST (SGOT) 27 U/L (5-34); Albumin 3.4 g/dL (3.5-5.0); Alkaline Phosphatase 58 U/L (40-110); Anion Gap 11 mmol/L (10-20); BUN (Urea Nitrogen) 14 mg/dL (7.0-18.7); Bilirubin, Total 0.4 mg/dL (0.2-1.2); Calc. Creatinine Clearance 88 mL/min (70-130); Calcium 8.3 mg/dL (7.8-10.44); Carbon Dioxide 25 mmol/L (22-29); Chloride 106 mmol/L (98-107); Estimated GFR 59; Globulin 3.8 g/dL (2.4-3.5); Glucose 82 mg/dL (70-105); Potassium 4.2 mmol/L (3.5-5.1); Protein, Total 7.2 g/dL (6.0-8.3); Sodium 138 mmol/L (136-145)
[2024-06-17 05:55] LABS: %Eosinophils 0.7 % (0.0-10.0); %Lymphocytes 25.9 % (21.0-51.0); %Monocytes 5.3 % (0.0-10.0); %Neutrophils 66.2 % (42.0-75.0); Hematocrit 24.2 % (36.0-47.0); Hemoglobin 6.7 g/dL (12.0-16.0); Mean Corpuscular HGB CONC 27.7 g/dL (32.0-36.0); Mean Corpuscular Hemoglobin 18.1 pg (27.0-31.0); Mean Corpuscular Volume 65.4 fL (78.0-98.0); Mean Platelet Volume 9.4 fL (7.4-10.4); Platelet Count 425 10x3/uL (130-400); RBC Distribution Width 26.9 % (11.5-14.5)
[2024-06-17 19:44] LABS: Hematocrit 30.8 % (36.0-47.0); Hemoglobin 9.2 g/dL (12.0-16.0)
[2024-06-18 06:06] LABS: ALT (SGPT) 23 U/L (8-55); AST (SGOT) 29 U/L (5-34); Albumin 3.4 g/dL (3.5-5.0); Alkaline Phosphatase 58 U/L (40-110); Anion Gap 11 mmol/L (10-20); BUN (Urea Nitrogen) 13 mg/dL (7.0-18.7); Bilirubin, Total 0.8 mg/dL (0.2-1.2); Calc. Creatinine Clearance 84 mL/min (70-130); Calcium 8.5 mg/dL (7.8-10.44); Carbon Dioxide 26 mmol/L (22-29); Chloride 101 mmol/L (98-107); Estimated GFR 56; Glucose 79 mg/dL (70-105); Potassium 4.1 mmol/L (3.5-5.1); Protein, Total 7.4 g/dL (6.0-8.3); Sodium 134 mmol/L (136-145)
[2024-06-18 06:09] LABS: #Basophils 0.09 10x3/uL (0.0-0.2); %Eosinophils 2.4 % (0.0-10.0); %Lymphocytes 22.1 % (21.0-51.0); %Monocytes 5.7 % (0.0-10.0); %Neutrophils 68.1 % (42.0-75.0); Hematocrit 30.7 % (36.0-47.0); Mean Corpuscular HGB CONC 29.3 g/dL (32.0-36.0); Mean Corpuscular Hemoglobin 20.1 pg (27.0-31.0); Mean Corpuscular Volume 68.7 fL (78.0-98.0); Mean Platelet Volume 9.6 fL (7.4-10.4); Platelet Count 404 10x3/uL (130-400); RBC Distribution Width 29.5 % (11.5-14.5); Red Blood Cell (RBC) Count 4.47 mill/uL (4.20-5.40)
[2024-06-18 06:23] LABS: Anisocytosis SLIGHT = 6-15 cells HPF (0-5); Hypochromia MODERATE=16-30 cells HPF (0-5); Microcytosis SLIGHT = 6-15 cells HPF (0-5); Platelet Adequacy Comment Platelets Normal; Polychromasia SLIGHT = 2-3 cells HPF (0-2); Tear Drops SLIGHT = 2-5 cells HPF (0-1)
[2024-06-19 05:29] LABS: ALT (SGPT) 29 U/L (8-55); AST (SGOT) 35 U/L (5-34); Albumin 3.5 g/dL (3.5-5.0); Alkaline Phosphatase 66 U/L (40-110); Anion Gap 14 mmol/L (10-20); BUN (Urea Nitrogen) 14 mg/dL (7.0-18.7); Bilirubin, Total 0.6 mg/dL (0.2-1.2); Calc. Creatinine Clearance 81 mL/min (70-130); Calcium 8.7 mg/dL (7.8-10.44); Carbon Dioxide 24 mmol/L (22-29); Chloride 103 mmol/L (98-107); Estimated GFR 54; Globulin 4.2 g/dL (2.4-3.5); Glucose 100 mg/dL (70-105); Potassium 4.2 mmol/L (3.5-5.1); Protein, Total 7.7 g/dL (6.0-8.3); Sodium 137 mmol/L (136-145)
[2024-06-19 05:49] LABS: #Basophils 0.07 10x3/uL (0.0-0.2); %Basophils 0.7 % (0.0-1.0); %Eosinophils 2.3 % (0.0-10.0); %Lymphocytes 15.8 % (21.0-51.0); %Monocytes 5.1 % (0.0-10.0); %Neutrophils 75.7 % (42.0-75.0); Hematocrit 33.8 % (36.0-47.0); Hemoglobin 9.6 g/dL (12.0-16.0); Mean Corpuscular HGB CONC 28.4 g/dL (32.0-36.0); Mean Corpuscular Hemoglobin 20.2 pg (27.0-31.0); Mean Platelet Volume 9.9 fL (7.4-10.4); Platelet Count 354 10x3/uL (130-400); RBC Distribution Width 31.3 % (11.5-14.5); Red Blood Cell (RBC) Count 4.76 mill/uL (4.20-5.40)
[2024-06-19] MEDS ORDERED: Saccharomyces boulardii 250 MG CAP PO SCH (10:56)
[2024-06-19] MEDS: Saccharomyces boulardii 250 MG CAP PO SCH (15:11)
[2024-06-19 17:37] LABS: A/G Ratio 0.8 (0.7-1.7); Albumin 3.4 g/dL (2.9-4.4); Alpha 1 0.2 g/dL (0.0-0.4); Alpha 2 0.8 g/dL (0.4-1.0); Beta 1.2 g/dL (0.7-1.3); Gamma 2.1 g/dL (0.4-1.8); Globulin, Total 4.2 g/dL (2.2-3.9); M-Spike 0.7 g/dL (Not Observed)
[2024-06-20 05:21] LABS: #Basophils 0.09 10x3/uL (0.0-0.2); %Basophils 0.9 % (0.0-1.0); %Lymphocytes 17.9 % (21.0-51.0); %Monocytes 6.5 % (0.0-10.0); %Neutrophils 71.2 % (42.0-75.0); Hematocrit 32.1 % (36.0-47.0); Hemoglobin 9.4 g/dL (12.0-16.0); Mean Corpuscular HGB CONC 29.3 g/dL (32.0-36.0); Mean Corpuscular Hemoglobin 20.4 pg (27.0-31.0); Mean Corpuscular Volume 69.8 fL (78.0-98.0); Mean Platelet Volume 9.4 fL (7.4-10.4); Platelet Count 375 10x3/uL (130-400); RBC Distribution Width 31.4 % (11.5-14.5)
[2024-06-20 05:35] LABS: ALT (SGPT) 35 U/L (8-55); AST (SGOT) 40 U/L (5-34); Albumin 3.5 g/dL (3.5-5.0); Alkaline Phosphatase 67 U/L (40-110); Anion Gap 12 mmol/L (10-20); BUN (Urea Nitrogen) 12 mg/dL (7.0-18.7); Bilirubin, Total 0.6 mg/dL (0.2-1.2); Calc. Creatinine Clearance 80 mL/min (70-130); Calcium 8.5 mg/dL (7.8-10.44); Carbon Dioxide 23 mmol/L (22-29); Chloride 105 mmol/L (98-107); Estimated GFR 53; Globulin 4.1 g/dL (2.4-3.5); Glucose 78 mg/dL (70-105); Potassium 4.1 mmol/L (3.5-5.1); Protein, Total 7.6 g/dL (6.0-8.3); Sodium 136 mmol/L (136-145)
[2024-06-20] MEDS: Saccharomyces boulardii 250 MG CAP PO SCH (08:45)
[2024-06-20] MEDS ORDERED: Saccharomyces boulardii 250 MG CAP PO SCH (09:00)
[2024-06-20 15:05] VITALS: BP 106/65; TEMP 98.3
[2024-06-22] MEDS ORDERED: TIRZEPATIDE 7.5 MG/0.5 ML SC SCH (09:00)
[2024-06-22] MEDS ORDERED: TIRZEPATIDE 7.5 MG/0.5 ML SQ SCH (09:00)
== END 2024-06-20 14:50 | disposition home or self-care (01) | DRG 203 ==
LOC: ERS 06:45 → T4-B 12:09 → OBSVTOIN 06-17 08:52
PROVIDERS: ADMIT Family Medicine; ATTEND Family Medicine
DX: J04.10 Acute tracheitis without obstruction (principal); D50.9 Iron deficiency anemia, unspecified; D75.839 Thrombocytosis, unspecified; E03.9 Hypothyroidism, unspecified; I10 Essential (primary) hypertension; E11.9 Type 2 diabetes mellitus without complications; F41.9 Anxiety disorder, unspecified; F32.A Depression, unspecified; F43.10 Post-traumatic stress disorder, unspecified; Z88.1 Allergy status to other antibiotic agents; Z88.8 Allergy status to other drugs, medicaments and biological substances; Z79.899 Other long term (current) drug therapy; Z90.49 Acquired absence of other specified parts of digestive tract; Z98.890 Other specified postprocedural states; Z79.84 Long term (current) use of oral hypoglycemic drugs
CPT/HCPCS: 36415; 36416; 36430; 71046; 71260; 80053; 83010; 83605; 83735; 83880; 84145; 84155; 84165; 84484; 84703; 85025; 85046; 85610; 85730; 86850; 86900; 86901; 87070; 87077; 87186; 87205; 87324; 87428; 87449; 93005; 94664; 96374; 97139; G0378; J2919; P9016; Q0162; Q9967